=== PATIENT | male | born 1965 | race African-American/Black ===

== ENCOUNTER 2024-09-09 04:16 | Inpatient (IN) | payer SELFPAY ==
[~2024-09-09] VITALS: Ht 188 cm; Wt 121.1 kg
[2024-09-09 05:01] LABS: BASOPHILS % 0.7 % (0.0-2.0); EOSINOPHILS % 2.8 % (0.0-5.0); HEMATOCRIT. 47.2 % (42.0-52.0); HEMOGLOBIN. 15.3 g/dL (14.0-18.0); LYMPHOCYTES % 31.2 % (20.0-50.0); MEAN CORPUSCULAR HGB CONC 32.5 g/dL (31.0-37.0); MEAN CORPUSCULAR VOLUME 83.2 fL (80.0-94.0); MEAN PLATELET VOLUME 8.1 fl (7.4-10.4); MONOCYTES % 8.3 % (2.0-8.0); PLATELET 139 x1000/uL (130-400); RED BLOOD CELL COUNT 5.67 mill/uL (4.7-6.1); RED CELL DISTRIBUTION WIDTH 14.3 % (11.6-14.6); WHITE BLOOD COUNT 8.1 x1000/uL (4.5-11.0)
[2024-09-09 05:07] LABS: CHLORIDE 101 mEq/L (98-107); POTASSIUM 3.5 mEq/L (3.5-5.1); SODIUM 135 mEq/L (136-145)
[2024-09-09 05:08] LABS: CARBON DIOXIDE 18 mEq/L (21-32)
[2024-09-09 05:09] LABS: CALCIUM 9.5 mg/dL (8.7-10.4)
[2024-09-09 05:13] LABS: CREATININE 1.5 mg/dL (0.6-1.3)
[2024-09-09 05:14] LABS: GLUCOSE 190 mg/dL (70-105); UREA NITROGEN BLOOD 14 mg/dL (9-23)
[2024-09-09 06:03] LABS: INR 1.1; PARTIAL THROMBOPLASTIN TIME 23.1 sec (23.4-31.0); PROTHROMBIN TIME 11.9 sec (9.6-11.0)
[2024-09-09 06:29] LABS: ETHANOL BLOOD < 10 mg/dL (<10)
[2024-09-09 06:29] LABS: CLARITY URINE CLEAR (CLEAR); COLOR URINE YELLOW (YELLOW); GLUCOSE URINE TRACE (NEGATIVE); KETONES URINE TRACE (NEGATIVE); LEUKOCYTE ESTERASE URINE NEGATIVE (NEGATIVE); NITRITE URINE NEGATIVE (NEGATIVE); OCCULT BLOOD URINE 1+ (NEGATIVE); PH URINE 5.5 (4.5-8.0); PROTEIN URINE 1+ (NEGATIVE); SPECIFIC GRAVITY URINE 1.014 (1.005-1.030); UROBILINOGEN URINE 0.2 E.U./dL (0.2-1.0)
[2024-09-09 06:30] LABS: TROPONIN I HIGH SENSITIVITY 61 ng/L (3.0-53)
[2024-09-09 06:39] LABS: *AMPHETAMINES SCREEN URINE NEGATIVE (NEGATIVE)
[2024-09-09] MEDS: SODIUM CHLORIDE 0.9% 1,000 ML IV ONE (06:39)
[2024-09-09 06:40] LABS: *BARBITURATES SCREEN URINE NEGATIVE (NEGATIVE); *BENZODIAZEPINES SCREEN URINE NEGATIVE (NEGATIVE); *COCAINE SCREEN URINE NEGATIVE (NEGATIVE); CANNABINOID URINE SCREEN NEGATIVE (NEGATIVE)
[2024-09-09 06:41] LABS: ECSTASY MDMA SCREEN URINE NEGATIVE (NEGATIVE); METHADONE URINE SCREEN NEGATIVE (NEGATIVE); OPIATES URINE SCREEN NEGATIVE (NEGATIVE); PHENCYCLIDINE URINE SCREEN NEGATIVE (NEGATIVE)
[2024-09-09 08:29] LABS: SQUAMOUS EPITHELIAL CELL URINE FEW /lpf (RARE/1+)
[2024-09-09 08:33] LABS: BACTERIA URINE TRACE; WBC URINE 0-2 /hpf (0-2)
[2024-09-09 08:34] LABS: RBC URINE 0-2 /hpf (0-2)
[2024-09-09] MEDS: ASPIRIN 325MG EC TABLET PO NR (08:54)
[2024-09-09] MEDS: IOHEXOL-350 100 ML BOTTLE ONE (08:55)
[2024-09-09 10:00] LABS: BG BASE EXCESS -2.1 mmol/L (-2.0-3.0); BG CARBOXYHEMOGLOBIN 0.8 % (0.5-1.5); BG DEOXYHEMOGLOBIN 4.7 % (0.0-5.0); BG FRACTION INSPIRED OXYGEN 21; BG HCO3 ACT 22.8 mmol/L (21.0-28.0); BG OXYGEN SATURATION 95.3 % (94.0-98.0); BG OXYHEMOGLOBIN 94.5 % (94.0-98.0); BG PCO2 39.6 mmHg (35.0-48.0); BG PH 7.378 (7.350-7.450); BG PO2 76.2 mmHg (83.0-108.0); BG SAMPLE SITE LEFT RADIAL; BG TOTAL HEMOGLOBIN 15.3 g/dL (13.5-17.5); BG VENT MODE ROOM AIR
[2024-09-09 10:01] LABS: TROPONIN I HIGH SENSITIVITY 79 ng/L (3.0-53)
[2024-09-10 00:04] VITALS: BP 140/77; PULSE 65; RESP 18; TEMP 36.55848; O2SAT 66
[2024-09-10 08:00] VITALS: BP 151/93; PULSE 60; RESP 20; TEMP 36.6696; O2SAT 99
[2024-09-10] MEDS ORDERED: ACETAMINOPHEN 325MG TABLET PO PRN (10:30)
[2024-09-10] MEDS ORDERED: ONDANSETRON HCL 4MG/2ML INJ IV PRN (10:30)
[2024-09-10 12:00] VITALS: BP 136/84; PULSE 68; RESP 18; TEMP 36.55848; O2SAT 98
[2024-09-10 16:00] VITALS: BP 135/84; PULSE 59; RESP 18; TEMP 36.22512; O2SAT 95
[2024-09-10 20:00] VITALS: BP 158/98; PULSE 78; RESP 16; TEMP 36.72516; O2SAT 97
[2024-09-10] MEDS: ATORVASTATIN CALCIUM 20MG TABLET PO SCH (22:46)
[2024-09-10] MEDS: ENOXAPARIN 30MG/0.3ML SYR SUBCUT SCH (22:48)
[2024-09-10 22:51] VITALS: BP 144/96; PULSE 67; RESP 18; TEMP 36.8072
[2024-09-11] VITALS (7 sets, daily range): BP systolic 139–159; BP diastolic 83–98; PULSE 63–71; RESP 16–20; TEMP 36.1956–37.16964; O2SAT 96–99
[2024-09-11] MEDS ORDERED: AMLO10TA4 MT (15:00)
[2024-09-11] MEDS: ATORVASTATIN CALCIUM 40MG TABLET PO SCH (20:52)
[2024-09-12] VITALS: BP 144/100; PULSE 62; RESP 20; TEMP 36.6696; O2SAT 97
[2024-09-12 03:55] VITALS: BP 149/101; PULSE 66; RESP 20; TEMP 36.33624; O2SAT 98
[2024-09-12 08:00] VITALS: BP 132/83; PULSE 58; RESP 22; TEMP 36.6696; O2SAT 99
[2024-09-12] MEDS: ASPIRIN 81MG TABLET PO SCH (08:40)
[2024-09-12] MEDS: AMLODIPINE 10MG TABLET PO SCH (08:43)
[2024-09-12 12:00] VITALS: BP 118/86; PULSE 61; RESP 18; TEMP 36.44736; O2SAT 98
[2024-09-12 16:00] VITALS: BP 128/74; PULSE 88; RESP 18; TEMP 36.55848; O2SAT 98
[2024-09-12 16:09] VITALS: BP 118/86; PULSE 61; TEMP 97.6; O2SAT 97
== END 2024-09-12 16:24 | disposition home or self-care (01) | DRG 52 ==
LOC: ER 04:16 → 5WST 09:06 → EDBEDREQ 09:38 → 7WST 09-11 09:07
PROVIDERS: ADMIT Internal Medicine; ATTEND Internal Medicine
DX: G93.41 Metabolic encephalopathy (principal); G45.9 Transient cerebral ischemic attack, unspecified; R56.9 Unspecified convulsions; I10 Essential (primary) hypertension; E78.5 Hyperlipidemia, unspecified; G47.33 Obstructive sleep apnea (adult) (pediatric); Z79.899 Other long term (current) drug therapy
CPT/HCPCS: 36415; 36600; 70496; 70498; 70551; 71045; 73030; 73502; 80048; 80061; 80305; 80320; 81003; 82375; 82805; 83605; 83880; 84145; 84484; 85025; 93005; 93306; 94660; 99285; J1650; Q9967; G0480